=== PATIENT | female | born 1960 | race Caucasian/White ===

== ENCOUNTER 2021-08-01 13:20 | Emergency (ER) | payer BC ==
[~2021-08-01] VITALS: Ht 157.5 cm; Wt 88.9 kg
[2021-08-01] MEDS ORDERED: fentaNYL PF VIAL 100 MCG/2 ML VIAL IVP ONE (13:45)
[2021-08-01] MEDS ORDERED: ONDANSETRON PF 4 MG/2 ML VIAL. IVP ONE (13:45)
[2021-08-01] MEDS ORDERED: IV NORMAL SALINE 1000ML BAG 1,000 ML IV ONE (13:45)
[2021-08-01 13:58] LABS: BASO # 0.1 x10^3/uL (0.0-0.2); BASO % 1 % (0-3); EOS % 0 % (0-3); HEMATOCRIT 31.1 % (36.0-47.0); HEMOGLOBIN 9.9 g/dL (12.0-15.5); LYMPH % 30 % (24-48); MEAN CORPUSCULAR HEMOGLOBIN 29 pg (25-35); MEAN CORPUSCULAR HGB CONC 32 g/dL (31-37); MEAN CORPUSCULAR VOLUME 90 fL (79-100); MONO # 1.4 x10^3/uL (0.0-1.1); MONO % 21 % (0-9); NEUT # 3.1 x10^3/uL (1.8-7.7); NEUT % 47 % (31-73); PLATELET COUNT 198 x10^3/uL (140-400); RED BLOOD COUNT 3.44 x10^6/uL (3.50-5.40); RED CELL DISTRIBUTION WIDTH 17.9 % (11.5-14.5); WHITE BLOOD COUNT 6.5 x10^3/uL (4.0-11.0)
[2021-08-01 14:06] LABS: CALCIUM 9.3 mg/dL (8.5-10.1); CREATININE 1.1 mg/dL (0.6-1.0); POTASSIUM 4.2 mmol/L (3.5-5.1)
[2021-08-01 14:12] LABS: ALBUMIN 3.9 g/dL (3.4-5.0); ALBUMIN/GLOBULIN RATIO 1.1 (1.0-1.7); TOTAL BILIRUBIN 1.1 mg/dL (0.2-1.0); TOTAL PROTEIN 7.3 g/dL (6.4-8.2)
--- NOTE | 2021-08-01 14:25 | PHYS DOC ---
Past Medical History Past Medical History: High Cholesterol, Hypertension Additional Past Medical Histor: lower extremity edema (VERONICA COON APRN) Past Surgical History: Hysterectomy (VERONICA COON APRN) Smoking Status: Never Smoker Alcohol Use: Occasionally (VERONICA COON APRN) General Adult EDM: Chief Complaint: MULTIPLE COMPLAINTS HPI: HPI: Patient is a 60-year-old female that presents today with right-sided flank pain and fatigue. Patient states that last Thursday she started feeling increased fatigue that worsened over the weekend, she states she saw Dr. Gonzalez in the office on Thursday she states she had blood work drawn and had a urine done she states that she was placed on Levaquin to be taken on a daily basis due to a possible infectious process, she states that she has not gotten any better she has worsened in her symptoms she said now her right flank hurts and she still continues to feel fatigued. Patient states she has a past medical history of chronic edema in her legs, hypertension and high cholesterol. Patient states that she has had nausea today and has been unable to eat or drink anything because of her nausea, she denies any diarrhea or constipation, fever chills or painful urination or frequency in urination. (VERONICA COON [employer]) Review of Systems: Review of Systems: Constitutional: Denies fever or chills. [] Eyes: Denies change in visual acuity. [] HENT: Denies nasal congestion or sore throat. [] Respiratory: Denies cough or shortness of breath. [] Cardiovascular: Denies chest pain or edema. [] GI: Right flank pain and nausea denies vomiting, bloody stools or diarrhea. [] : Denies dysuria. [] Musculoskeletal: Denies back pain or joint pain. [] Integument: Denies rash. [] Neurologic: Denies headache, focal weakness or sensory changes. [] Endocrine: Denies polyuria or polydipsia. [] Lymphatic: Denies swollen glands. [] Psychiatric: Denies depression or anxiety. [] (VERONICA COON [employer]) Heart Score: C/O Chest Pain: No Risk Factors: Risk Factors: DM, Current or recent (<one month) smoker, HTN, HLP, family history of CAD, obesity. Risk Scores: Score 0 - 3: 2.5% MACE over next 6 weeks - Discharge Home Score 4 - 6: 20.3% MACE over next 6 weeks - Admit for Clinical Observation Score 7 - 10: 72.7% MACE over next 6 weeks - Early Invasive Strategies (VERONICA COON [employer]) Current Medications: Current Medications Medications (Trade) Dose Ordered Sig/Pawan Start Time Stop Time Status Last Admin Dose Admin Fentanyl Citrate (Fentanyl 2ml Vial) 50 mcg 1X ONCE 08/01/21 13:45 08/01/21 13:58 DC 08/01/21 14:09 50 MCG Ondansetron HCl (Zofran) 4 mg 1X ONCE 08/01/21 13:45 08/01/21 13:58 DC 08/01/21 14:09 4 MG Sodium Chloride 1,000 ml @ 999 mls/hr 1X ONCE 08/01/21 13:45 08/01/21 14:45 08/01/21 14:04 999 MLS/HR (VERONICA COON [employer]) Allergies: Allergies: Allergies Coded Allergies Type Severity Reaction Last Updated Verified No Known Drug Allergies 08/01/21 No (VERONICA COON APRN) Physical Exam: PE: Constitutional: Well developed, well nourished, no acute distress, non-toxic appearance. [] HENT: Normocephalic, atraumatic, bilateral external ears normal, oropharynx moist, no oral exudates, nose normal. [] Eyes: PERRLA, EOMI, conjunctiva normal, no discharge. [] Neck: Normal range of motion, no tenderness, supple, no stridor. [] Cardiovascular:Heart rate regular rhythm, no murmur [] Lungs & Thorax: Bilateral breath sounds clear to auscultation [] Abdomen: Bowel sounds normal, soft, no tenderness, no masses, no pulsatile masses. [] Skin: Warm, dry, no erythema, no rash. [] Back: No tenderness, right CVA tenderness. [] Extremities: No tenderness, no cyanosis, no clubbing, ROM intact, no edema. [] Neurologic: Alert and oriented X 3, normal motor function, normal sensory function, no focal deficits noted. [] Psychologic: Affect normal, judgement normal, mood normal. [] (VERONICA COON [employer]) Current Patient Data: Labs: Laboratory Tests Test 08/01/21 13:41 White Blood Count 6.5 x10^3/uL (4.0-11.0) Red Blood Count 3.44 x10^6/uL (3.50-5.40) L Hemoglobin 9.9 g/dL (12.0-15.5) L Hematocrit 31.1 % (36.0-47.0) L Mean Corpuscular Volume 90 fL (79-100) Mean Corpuscular Hemoglobin 29 pg (25-35) Mean Corpuscular Hemoglobin Concent 32 g/dL (31-37) Red Cell Distribution Width 17.9 % (11.5-14.5) H Platelet Count 198 x10^3/uL (140-400) Neutrophils (%) (Auto) 47 % (31-73) Lymphocytes (%) (Auto) 30 % (24-48) Monocytes (%) (Auto) 21 % (0-9) H Eosinophils (%) (Auto) 0 % (0-3) Basophils (%) (Auto) 1 % (0-3) Neutrophils # (Auto) 3.1 x10^3/uL (1.8-7.7) Lymphocytes # (Auto) 2.0 x10^3/uL (1.0-4.8) Monocytes # (Auto) 1.4 x10^3/uL (0.0-1.1) H Eosinophils # (Auto) 0.0 x10^3/uL (0.0-0.7) Basophils # (Auto) 0.1 x10^3/uL (0.0-0.2) Platelet Estimate Pending Laboratory Tests 08/01/21 13:41 Vital Signs: Vital Signs Date Time Temp Pulse Resp B/P (MAP) Pulse Ox O2 Delivery O2 Flow Rate FiO2 08/01/21 16:54 72 131/71 (91) 18 Room Air 08/01/21 15:54 70 153/68 (96) 18 Room Air 08/01/21 15:24 72 138/63 (88) 18 Room Air 08/01/21 14:54 68 167/67 (100) 18 Room Air 08/01/21 14:09 16 98 Room Air 08/01/21 14:03 75 129/70 (89) 18 Room Air 08/01/21 13:22 98.1 79 18 152/85 (107) 99 Room Air 98.1 Vital Signs Date Time Temp Pulse Resp B/P (MAP) Pulse Ox O2 Delivery O2 Flow Rate FiO2 08/01/21 14:09 16 98 Room Air 08/01/21 13:22 98.1 79 152/85 (107) 98.1 (VERONICA COON APRN) EKG: EKG: [] (VERONICA COON APRN) Radiology/Procedures: Radiology/Procedures: [REASON: R CVA pain PROCEDURE: CT ABD PELV W/ IV CONTRST ONLY Exam: CT abdomen and pelvis with contrast INDICATION: Right CVA pain TECHNIQUE: Sequential axial images through the abdomen and pelvis obtained following the administration of 60 mL of Isovue-370 IV contrast. Sagittal and coronal reformatted images were reconstructed from the axial data and reviewed. Exposure: One or more of the following in the visualized dose reduction techniques were utilized for this examination: 1. Automated exposure control 2. Adjustment of the MA and/or KV according to patient size 3. Use of iterative of reconstructive technique Comparisons: None FINDINGS: Heart size is normal. No pericardial effusion. Visualized lung bases are clear. No pleural effusion. Liver, pancreas, gallbladder and adrenals are unremarkable. Spleen is enlarged measuring 16.5 cm in length. No perinephric inflammation or hydronephrosis. No renal or ureteral calculi are identified. Bladder is partially distended and not well evaluated. Uterus is absent. No abnormal adnexal mass. Moderate amount of stool noted in the colon. Appendix is normal. No free intra- abdominal air or fluid. No obstruction. Abdominal aorta has normal course and caliber. Abdominal vasculature is patent. No enlarged intra-abdominal lymph nodes are identified. No suspicious osseous lesions or acute fractures. IMPRESSION: 1. No renal or ureteral calculi. No evidence for obstructive uropathy. 2. Marked splenomegaly. Electronically signed by: Pao Chaudhary MD (08/01/2021 3:27 PM) [facility]] (VERONICA COON APRN) Course & Med Decision Making: Course & Med Decision Making Pertinent Labs and Imaging studies reviewed. (See chart for details) [id number] I reviewed radiological and laboratory results with patient and family member at the bedside I did inform her that her hemoglobin was 9.9 and could be the cause of her fatigue and her dizziness, she states she has been taking iron pills at home because she was told that she needed to but she does not know any recent hemoglobin levels. She is requesting that I talk with Dr. Gonzalez to find out what the plan of care would be for her and resolving the dizziness and fatigue. Dr. Gonzalez will be paged [phone] Gonzalez and conferred with him about this patient he states that her labs that were drawn on Thursday reflect the labs that were done today an d are very similar, he suggested the patient continue with the Levaquin that she is currently taking and to follow-up in the office as soon as possible for further evaluation and management I did relay the information that Dr. Gonzalez has given me to the family and patient and they are agreeable with the plan of care. (VERONICA COON APRN) Dragon Disclaimer: Dragon Disclaimer: This electronic medical record was generated, in whole or in part, using a voice recognition dictation system. (VERONICA COON APRN) Departure Departure Impression: Primary Impression: Right flank pain Additional Impressions: Fatigue Qualified Codes: R53.83 - Other fatigue Anemia Qualified Codes: D64.9 - Anemia, unspecified Disposition: 01 HOME / SELF CARE / HOMELESS Condition: STABLE Referrals: SARAH CHISHOLM MD (PCP) LEBRON DEIWTT CNM, GINA M MD WILSON, BRANDI D MD Patient Instructions: Anemia, Nonspecific-Brief, Fatigue, Flank Pain Additional Instructions: Continue with the Levaquin that was previously prescribed by Dr. Gonzalez Continue to take the iron supplements that was prescribed by Dr. Gonzalez as well Follow-up with Dr. Gonzalez in his office as soon as possible for further ev aluation and management of your fatigue and your flank pain. Return to the emergency department for any chest pain, increased work of breathing or shortness of breath, any fainting spells, or have any bright red blood in your stool. Attending Signature Attending Signature I have reviewed the PA/BIOCHEMISTRY TECHNOLOGIST's note and plan of care. I was available for consultation as needed during the patient's visit in the emergency department. I agree with the clinical impression, plan, and disposition. (DAGMAR ADEN DO) VERONICA COON [employer] Aug 01, 2021 14:25 ADENDAGMAR ORELLANA DO August 07, 2021 00:52
[2021-08-01 14:38] LABS: HYALINE CASTS, URINE MODERATE /HPF
[2021-08-01 14:39] LABS: BACTERIA,URINE 0 /HPF (0-FEW); RBC,URINE OCC /HPF (0-2)
[2021-08-01] MEDS ORDERED: IOHEXOL 300 MG/ML 100ML VIAL. IV ONE (14:45)
[2021-08-01] MEDS ORDERED: IOHEXOL 300 MG/ML 100ML VIAL. ONE (14:49)
--- NOTE | 2021-08-01 15:29 | RAD ---
Exam: CT abdomen and pelvis with contrast INDICATION: Right CVA pain TECHNIQUE: Sequential axial images through the abdomen and pelvis obtained following the administrati on of 60 mL of Isovue-370 IV contrast. Sagittal and coronal reformatted images were reconstructed fro m the axial data and reviewed. Exposure: One or more of the following in the visualized dose reduction techniques were utilized for this examination: 1. Automated exposure control 2. Adjustment of the MA and/or KV according to patient size 3. Use of iterative of reconstructive technique Comparisons: None FINDINGS: Heart size is normal. No pericardial effusion. Visualized lung bases are clear. No pleural effusion. Liver, pancreas, gallbladder and adrenals are unremarkable. Spleen is enlarged measuring 16.5 cm in l ength. No perinephric inflammation or hydronephrosis. No renal or ureteral calculi are identified. Bladder is partially distended and not well evaluated. Uterus is absent. No abnormal adnexal mass. Moderate amount of stool noted in the colon. Appendix is normal. No free intra-abdominal air or fluid . No obstruction. Abdominal aorta has normal course and caliber. Abdominal vasculature is patent. No enlarged intra-abdominal lymph nodes are identified. No suspicious osseous lesions or acute fractures. IMPRESSION: 1. No renal or ureteral calculi. No evidence for obstructive uropathy. 2. Marked splenomegaly. Electronically signed by: Pao Chaudhary MD (08/01/2021 3:27 PM) [facility]
[2021-08-01 16:54] VITALS: BP 131/71
[2021-08-01 20:07] LABS: % BANDS 6 % (0-9); % LYMPHS 31 % (24-48); % METAS 4 % (0-0); % MONOS 18 % (0-10); % MYELOS 8 % (0-0); ANISOCYTOSIS SLIGHT; NUCLEATED RBC 6; PLT ESTIMATE ADEQUATE (ADEQUATE); POLYCHROMASIA SLIGHT
[2021-08-01 20:08] LABS: HYPOCHROMIA SLIGHT; TEAR DROP CELLS FEW
[2021-08-01 20:12] LABS: % OTHERS 1 % (0-0)
[2021-08-03 13:31] LABS: % SEGS 32 % (35-66)
== END 2021-08-01 17:00 | disposition home or self-care (01) ==
LOC: ER 13:20
DX: R10.9 Unspecified abdominal pain (principal); R11.0 Nausea; R53.83 Other fatigue; E78.00 Pure hypercholesterolemia, unspecified; I10 Essential (primary) hypertension; Z90.710 Acquired absence of both cervix and uterus
CPT/HCPCS: 36415; 74177; 80053; 81001; 83605; 85007; 85025; 87040; 96361; 96374; 96375; 99285; J2405; J3010; J7030; Q9967

== ENCOUNTER → 2021-08-27 | Outpatient (CLI) | payer BC ==
[2021-08-01 16:54] VITALS: BP 131/71
[2021-08-27 10:57] LABS: CALCIUM 8.5 mg/dL (8.5-10.1); CREATININE 0.7 mg/dL (0.6-1.0); GFR 85.9; POTASSIUM 4.2 mmol/L (3.5-5.1)
[2021-08-27 11:13] LABS: BASO # 0.1 x10^3/uL (0.0-0.2); BASO % 3 % (0-3); EOS % 0 % (0-3); LYMPH # 0.9 x10^3/uL (1.0-4.8); LYMPH % 18 % (24-48); MEAN CORPUSCULAR HEMOGLOBIN 29 pg (25-35); MEAN CORPUSCULAR HGB CONC 32 g/dL (31-37); MEAN CORPUSCULAR VOLUME 90 fL (79-100); MONO # 0.8 x10^3/uL (0.0-1.1); MONO % 15 % (0-9); NEUT # 3.3 x10^3/uL (1.8-7.7); NEUT % 64 % (31-73); PLATELET COUNT 207 x10^3/uL (140-400); RED BLOOD COUNT 3.44 x10^6/uL (3.50-5.40); RED CELL DISTRIBUTION WIDTH 17.6 % (11.5-14.5); WHITE BLOOD COUNT 5.1 x10^3/uL (4.0-11.0)
[2021-08-27 11:16] LABS: ALBUMIN/GLOBULIN RATIO 1.3 (1.0-1.7); TOTAL BILIRUBIN 1.4 mg/dL (0.2-1.0); TOTAL PROTEIN 7.2 g/dL (6.4-8.2)
[2021-08-27 13:55] LABS: % LYMPHS 30 % (24-48); % MONOS 8 % (0-10); % SEGS 62 % (35-66); HYPOCHROMIA SLIGHT; NUCLEATED RBC 2; PLT ESTIMATE ADEQUATE (ADEQUATE)
[2021-08-27 13:56] LABS: ANISOCYTOSIS SLIGHT
[2021-08-28 14:14] LABS: IMMUNOGLOBULIN A 173 mg/dL (87-352); IMMUNOGLOBULIN G 713 mg/dL (586-1602); IMMUNOGLOBULIN M 156 mg/dL (26-217)
[2021-08-28 16:13] LABS: ALBUM 3.9 g/dL (2.9-4.4); ALPHA 1 0.3 g/dL (0.0-0.4); ALPHA 2 0.8 g/dL (0.4-1.0); GAMMA 0.8 g/dL (0.4-1.8); KAPPA FREE 27.9 mg/L (3.3-19.4); KAPPA LAMBDA RATIO 1.61 (0.26-1.65); LAMBDA FREE 17.3 mg/L (5.7-26.3); PROTEIN TOTAL 6.8 g/dL (6.0-8.5); SPEP AG RATIO 1.3 (0.7-1.7)
== END ==
LOC: ONCLAB 09:13
PROVIDERS: ATTEND Internal Medicine Hematology & Oncology
DX: D50.9 Iron deficiency anemia, unspecified (principal); D64.89 Other specified anemias
CPT/HCPCS: 36415; 80053; 82525; 82607; 82728; 82746; 82784; 83010; 83520; 83540; 83550; 84165; 85007; 85025; 85045; 86334; 88374